=== PATIENT | female | born 1955 | race Caucasian/White ===

== ENCOUNTER 2017-02-01 03:28 | Inpatient (IN) | payer OTHER ==
[~2017-02-01] VITALS: Ht 165.1 cm; Wt 76.2 kg
[~2017-02-01 03:28] MED LIST: CYMBALTA60 M1 PO; ESTRACE1 MG PO; HYDROCHLOROTHIA25 M1 PO; PROAIR HFA8.5 GM INH; PROTONIX40 M3 PO; RESTASIS1 EACH OPH; XANAX0.5 M1 PO
--- NOTE | 2017-02-01 13:25 | Admission Core Measures ---
Admission Meds I reviewed the following Meds: Current Medications Sig/Scott Start time Last Medication Dose Stop Time Status Admin Albuterol Sulfate 2 PUF Q4-6 PRN PRN 02/01 1315 UNVr (Ventolin) Alprazolam 0.5 MG DAILY PRN 02/01 1315 UNVr (Xanax) 02/08 1314 Clindamycin 600 MG ONCE 02/01 0000 NR (Cleocin) 02/01 2359 Dextrose/Water 50 ML (D5W) Duloxetine HCl 60 MG DAILY 02/02 1000 UNVr (Cymbalta) Estradiol 1 MG .[EVERY OTHER ] 02/01 1315 UNVr (Estrace) Hydrochlorothiazide 25 MG DAILY 02/02 1000 UNVr (Hydrodiuril) Non-Formulary 0 SEE ADMIN CRITERIA 02/01 1315 UNVr Medication (NON FORMULARY) Pantoprazole Sodium 40 MG DAILY 02/02 1000 UNVr (Protonix) Acute Coronary Syndrome Inclusion Criteria ACS Diagnosis No Inpatient Core Measures LDL Reminder: If No, please order W/I first 24hr of stay Congestive Heart Failure Inclusion Criteria CHF Diagnosis No Cerebrovascular accident Inclusion Criteria CVA/TIA Diagnosis No Inpatient Core Measures Bedside Swallow Eval Reminder: If BSE failed, place ST order Antithrombotic Reminder: Order Antithrombotic Medication by end of day 2 Antithrombotic Reminder: Document Reason Antithrombotic Not ordered by end of day 2 AFIB/Flutter Reminder: If Present, add to problem list AFIB/Flutter Reminder: Order Anticoag Medication for pts with AFIB/Flutter Atherosclerosis Reminder: If Present, add to problem list LDL Reminder: If No, please order W/I first 24hr of stay PT Order Reminder: If No, please order Venous thromboembolism Inpatient Core Measures VTE Risk Factors: Age > 40, Surgery No [facility] VTE prophylaxis d/t No contraindications No VTE Pharm Prophylaxis d/t Surgical contraindication Inclusion Criteria - Per Current guidelines, there needs to be overlap - treatment for the first 5 days of Warfarin therapy. - Parenteral Anticoagulation (IV or SC) needs to be - given along with Warfarin therapy. VTE Diagnosis No VTE Type NONE VTE Confirmed by (Test) NONE Problem List As ranked by this Provider includes Assessment & Plan 1. Osteochondral defect of femoral condyle HOME MEDS Home Med List Albuterol Sulfate (Proair Hfa) 90 MCG HFA.AER.AD 2 PUF INH Q4-6 PRN PRN ASTHMA (Reported) Alprazolam (Xanax) 0.5 MG TABLET 1 TAB PO DAILY NEEDED PRN ANXIETY ( Reported) Cyclosporine (Restasis) 0.05 % DROPERETTE 1 GTT OPH BID DRY EYE (Reported) Duloxetine HCl (Cymbalta) 60 MG CAPSULE.DR 1 CAP PO DAILY PAIN (Reported) Estradiol (Estrace) 1 MG TABLET 1 TAB PO EVERY OTHER POST MENOPAUSAL ( Reported) Hydrochlorothiazide 25 MG TABLET 1 TAB PO DAILY HTN (Reported) Pantoprazole Sodium (Protonix) 40 MG TABLET.DR 1 TAB PO DAILY GERD (Reported)
[2017-02-01] MEDS ORDERED: PERCOCET 5-3251 EACH PO (13:26)
--- NOTE | 2017-02-01 13:30 | Patient Discharge Instructions ---
Discharge Instructions General Discharge Information You were seen/treated for: RIGHT KNEE PAIN RELATED TO OSTEOCHONDRAL DEFECT You had these procedures: RIGHT KNEE MEDIAL FEMORAL CONDYLE SUBCHONDROPLASTY Watch for these problems: Increasing pain despite the use of pain medications. Increasing redness, warmth, or swelling. Drainage from incisions. Inability to bear weight on right leg. Persistent nausea and vomitting. Fever greater than 101.5 degrees. Do not soak the wound: Yes No bath, but you may shower: Yes Other wound care: Keep wound clean and dry. No ointments or lotions on or near incision. Daily dry dressing changes after the third postoperative day unless otherwise indicated by DR. OLEA. Special Instructions: Weight bear as tolerated, use rolling walker for support. Diet Continue normal diet: Yes Recommended Diet: Regular Activity Full Activity/No Limits: No Activity Self Limited: Yes Pounds, do NOT lift more than: 10 Activity Limited to: Weight bear as tolerated Acute Coronary Syndrome Inclusion Criteria At DC or during hospital stay patient has or had the following: ACS DIAGNOSIS No Discharge Core Measures Meds if any: Prescribed or Continued at Discharge Meds if any: NOT Prescribed or Continued at Discharge Congestive Heart Failure Inclusion Criteria At DC or during hospital stay patient has or had the following: CHF DIAGNOSIS No Discharge Core Measures Meds if any: Prescribed or Continued at Discharge Meds if any: NOT Prescribed or Continued at Discharge Cerebrovascular accident Inclusion Criteria At DC or during hospital stay patient has or had the following: CVA/TIA Diagnosis No Discharge Core Measures Meds if any: Prescribed or Continued at Discharge Meds if any: NOT Prescribed or Continued at Discharge Venous thromboembolism Inclusion Criteria VTE Diagnosis No VTE Type NONE VTE Confirmed by (Test) NONE Discharge Core Measures - Per Current guidelines, there needs to be overlap - treatment for the first 5 days of Warfarin therapy. - If discharged on Warfarin prior to 5 days of - overlap therapy, the patient will need to be - assessed for post discharge needs including - *Post discharge parental anticoagulation - *Warfarin and/or parental anticoagulation education - *Follow up date to check INR post discharge At least 5 days overlap therapy as Inpatient No Meds if any: Prescribed or Continued at Discharge Note: Overlap Therapy is Warfarin and Anticoagulant Meds if any: NOT Prescribed or Continued at Discharge
--- NOTE | 2017-02-01 13:37 | Surgical Discharge Summary ---
Visit Information Visit Dates Admission Date: 02/01/17 Discharge Date: 02/02/17 History of Present Illness Chief Complaint: Right knee pain related to osteochondral defect of right medial femoral condyle Medical History Isolation History: Standard Tetanus Vaccine: 04/30/13 Surgical History Pertinent Surgical History: non-contributory Psychosocial History What is Your Primary Language? Kyrgyz Review of Systems: See H&P Hospital Course Course Attending Physician: SAMREEN OLEA MD Primary Care Physician: PAULY BAKER MD Hospital Course: On 02/01/2017, Neetu underwent a right knee arthroscopy with a subchondroplasty of the medial femoral condyle. She tolerated the procedure well but required intravenous pain medications in the post operative period thereby necessitaing an admission to the hospital. From the post anesthesia care unit, she was transferred to a general surgical floor. There, her vital signs were stable and within normal limits, and she remained neurovascularly intact. Her diet was advanced and tolerated, and she voided spontaneously. Over the course of her stay, her pain was eventually able to be managed with the exclusive use of oral pain medication and she was evaluated and treated by physical therapy. She was deemed appropriate for discharge. Allergies: Coded Allergies: Penicillins (HIVES 01/31/17) Sulfa (Sulfonamide Antibiotics) (? 01/31/17) cefuroxime (From CEFTIN) (HIVES 01/31/17) Disposition Summary Disposition Principal Diagnosis: Right knee osteochondral defect medial femoral condyle Additional Diagnosis: none Discharge Disposition: home or self care Discharge Instructions General Discharge Information Code Status: Full Code Patient's Diet: Regular, Advance as tolerated Patient's Activity: Weight bear as tolerated, use rolling walker for support Follow-Up Instructions/Appts: Follow up in one week from surgery with Dr Olea Medications at Discharge Discharge Medications: Continue taking these medications: Hydrochlorothiazide (Hydrochlorothiazide) 25 MG TABLET 1 Tablet ORAL DAILY Comments: Last Taken: 02/02/17 Time: 8AM Duloxetine HCl (Cymbalta) 60 MG CAPSULE. 1 Capsule ORAL DAILY Comments: Last Taken: 02/01/17 Time: 8:30PM Estradiol (Estrace) 1 MG TABLET 1 Tablet ORAL EVERY OTHER Alprazolam (Xanax) 0.5 MG TABLET 1 Tablet ORAL DAILY NEEDED as needed for ANXIETY Comments: NOT GIVEN WHILE IN HOSPITAL Albuterol Sulfate (Proair Hfa) 90 MCG HFA.AER.AD 2 Puff Inhale through mouth EVERY 4-6 HOURS NEEDED as needed for ASTHMA Comments: NOT GIVEN WHILE IN HOSPITAL Cyclosporine (Restasis) 0.05 % DROPERETTE 1 Drop In the eye TWICE DAILY Instructions: LEFT EYE ONLY Comments: Last Taken: 02/02/17 Time: 8AM Pantoprazole Sodium (Protonix) 40 MG TABLET.DR 1 Tablet ORAL DAILY Comments: Last Taken: 02/02/17 Time: 8AM IV DOSE GIVEN WHILE IN HOSPITAL Start taking the following new medications: Oxycodone HCl/Acetaminophen (Percocet 5-325 MG Tablet) 5 MG-325 MG TABLET 1-2 Tablet ORAL Q4-6H as needed for PAIN Qty = 36 No Refills Comments: Last Taken: 02/02/17 Time: 8:30AM
--- NOTE | 2017-02-01 14:30 | NUR ---
PT ARRIVED FROM PACU S/P RT LEG ARTHROSCOPY, PT AXO, C/O PAIN 12/19, REFUSE NEED FOR PAIN MEDS, RT KNEE DSG CDI, PT ORIENTED TO ROOM, CALL LIGHT AND PLAN OF CARE, PT VERBALIZES UNDERSTANDING
--- NOTE | 2017-02-01 14:55 | RADIOLOGY REPORT ---
EXAMINATION: XR KNEE, RIGHT C-ARM FLUOROSCOPY ASSISTANCE CLINICAL INFORMATION: 61-year-old female for right knee arthroscopy. COMPARISON: None TECHNIQUE: 10 spot radiographs were obtained at the time of the procedure. Fluoroscopy time: 1 minute 48 seconds. FINDINGS: Radiopaque device was seen projecting over the medial aspect of the right knee at the time of the procedure. Full procedural detail will be dictated by Dr. Moreno. IMPRESSION: C-arm fluoroscopy assistance is provided at the time of right knee arthroscopy. Full procedural detail will be dictated by Dr. Moreno.
[2017-02-01 15:00] VITALS: BP 115/70
--- NOTE | 2017-02-01 15:32 | PN- Orthopedic ---
Subjective Subjective: POST-OP NOTE: No complaints. IV pain requirements in pacu necessitated admission overnight. She is tolerating clears. No nausea. She voided in pacu via bedpan. She hasn't been seen by PT yet, and has yet to get out of bed. No dizziness. No shortness of breath. No chest pains. Objective Vital Signs and I&Os Intake & Output 02/01 1600 02/01 0802/01 0000 01/31 1600 01/31 0801/31 0000 Intake Total Output Total Balance Patient 168 lb Weight pacu flowsheet reviewed, voided in pacu Physical Exam: General - alert & oriented x 3. comfortable. no acute distress. Lungs - clear bilaterally. no w/r/r. Cardiac - s1s2. reg. Abdomen - soft. nontender. Extremities - warm bilaterally. no c/c/e. right knee dressing c/d/i, with ice pack in place. sensation grossly intact and equal. strong df/pf b/l. calves soft and nontender b/l. Current Medications: Current Medications Sig/Scott Start time Last Medication Dose Route Stop Time Status Admin Albuterol Sulfate 2 PUF Q4-6 PRN PRN 02/01 1500 AC INH Albuterol Sulfate 2 PUF Q4-6 PRN PRN 02/01 1315 DC INH Alprazolam 0.5 MG DAILY PRN 02/01 1500 UNVr PO 02/08 1314 Alprazolam 0.5 MG DAILY PRN 02/01 1315 DC PO 02/08 1314 Clindamycin 600 MG ONCE 02/01 0000 DC Dextrose/Water 50 ML IV 02/01 2359 Cyclosporine 1 GTT BID 02/01 2200 DC OPH Cyclosporine 1 GTT BID 02/01 220 UNVr OPH Dextrose/Sodium 1,000 ML .[id number] 02/01 1500 AC Chloride IV Docusate Sodium 100 MG BID 02/01 2200 UNVr PO Duloxetine HCl 60 MG DAILY 02/02 1000 DC PO Duloxetine HCl 60 MG DAILY 02/02 1000 UNVr PO Estradiol 1 MG Q48 02/02 1000 DC PO Estradiol 1 MG Q48 02/02 1000 UNVr PO Hydrochlorothiazide 25 MG DAILY 02/02 1000 DC PO Hydrochlorothiazide 25 MG DAILY 02/02 1000 UNVr PO Morphine Sulfate 2 MG Q2P PRN 02/01 1500 UNVr IV Ondansetron HCl 4 MG Q6P PRN 02/01 1500 UNVr IV Oxycodone/ 1 TAB Q4P PRN 02/01 1500 UNVr Acetaminophen PO Oxycodone/ 2 TAB Q4P PRN 02/01 1500 UNVr Acetaminophen PO Pantoprazole Sodium 40 MG DAILY 02/02 1000 DC IV Pantoprazole Sodium 40 MG DAILY 02/02 1000 UNVr IV Promethazine HCl 12.5 MG Q6P PRN 02/01 1500 UNVr IV 02/08 1314 Assessment/Plan Assessment/Plan This 61 year old white female is POD#0 s/p right knee arthroscopy with a subchondroplasty of the medial femoral condyle, for right knee pain related to osteochondral defect of right medial femoral condyle advance diet as tolerated pain control as needed. transition to percocet as able for home dispo. add colace bid PT eval - wbat rolling walker as needed home meds re-ordered d/c planning for home tomorrow if cleared by PT will d/w Core Measures/Miscellaneous Venous Thromboembolism VTE Risk Factors: Age > 40, Surgery VTE Contraindications: No Contraindications VTE Diagnosis: No VTE Type: NONE VTE Confirmed by (Test): NONE Beta Neil Is Beta Neil a Home Med? No Antibiotics Is Patient on Antibiotics? No
[2017-02-01 17:38] VITALS: BP 102/60
[2017-02-01 19:30] VITALS: BP 120/60
[2017-02-01 21:30] VITALS: BP 114/70
[2017-02-02 02:00] VITALS: BP 118/68
[2017-02-02 05:30] VITALS: BP 114/70
--- NOTE | 2017-02-02 07:30 | PN- Orthopedic ---
See Addendum Subjective Subjective: No acute overnight events reported. Adequate pain control was achieved with the use of oral pain medication. Patient has yet to ambulate, is awaiting physical therapy this am. Is anticipating discharge to home today. No complaints of chest pain, shortness of breath or difficulty breathing. No nausea or vomitting. No difficulty with voiding. Objective Vital Signs and I&Os Vital Signs Date Time Temp Pulse Resp B/P B/P Pulse O2 O2 Flow FiO2 Mean Ox Delivery Rate 02/02 0530 97.8 80 20 114/70 100 Nasal 3.0L Cannula 02/02 0200 98.0 90 20 118/68 100 Nasal 3.0L Cannula 02/01 2130 98.1 89 20 114/70 100 Nasal Cannula 02/01 1930 97.8 80 20 120/60 96 Nasal Cannula 02/01 1738 97.9 89 20 102/60 98 Nasal Cannula 02/01 1600 Nasal 2.0L Cannula 02/01 1500 96.0 89 20 115/70 98 Nasal 2.0L Cannula 02/01 1430 Nasal 2.0L Cannula Intake & Output 02/02 0800 02/02 0000 02/01 1600 02/01 0800 02/01 0000 01/31 1600 Intake Total 600 Output Total 1100 Balance -500 Intake, IV 600 Output, Urine 1100 Patient 168 lb 168 lb Weight Weight Reported by Patient Measurement Method Physical Exam: General: Alert and oriented x3, no acute distress Cardiac: RRR, s1s2 Pulm: C T A bilaterally Abd: non-tender, non-distended Extremities: Moves all extremities, distal sensation intact. Motor 5/5 in plantar and dorsi flexion. Skin warm and well perfused. DP pulses palpable bilaterally. Bilateral calves soft and non-tender Surgical site: Right knee, Dressing dry and intact. Assessment/Plan Assessment/Plan This is a 61 year old female, POD 1, s/p right knee arthroscopy with subchondroplasty. PMH includes htn, gerd, hld, dep and anxiety. Was admitted overnight for pain control, doing well. -Continue oral percocet for pain managment -OOB with pt today, wbat, stairs -Continue diet as tolerated -Mechanical dvt ppx with alps, early ambulation -Plan for discharge to home today -Will d/w Dr. Moreno Core Measures/Miscellaneous Venous Thromboembolism VTE Risk Factors: Age > 40, Surgery VTE Contraindications: No Contraindications VTE Diagnosis: No VTE Type: NONE VTE Confirmed by (Test): NONE Beta Neil Is Beta Neil a Home Med? No Antibiotics Is Patient on Antibiotics? No
--- NOTE | 2017-02-08 12:51 | Operative Report ---
Operative/Inv Procedure Report Surgery Date: 02/01/17 Name of Procedure: #1 right knee arthroscopically aided open reduction internal fixation of the medial femoral condyle stress fracture and insufficiency fracture #2 right knee diagnostic arthroscopy Pre-Operative Diagnosis: Insufficiency fracture right knee medial femoral condyle Post-Operative Diagnosis: Same Estimated Blood Loss: less than 50ml Surgeon/Machine Sole Leveler: SAMREEN OLEA MD Anesthesia: laryngeal mask airway IV Fluids: See anesthesia record Drains: None Specimens: None Complications: None Condition: Stable Operative Indication: Patient is a 61-year-old female who had an MRI post arthroscopy for meniscectomy on the medial meniscus which revealed a insufficiency and stress fracture of the medial femoral condyle. She was indicated for treatment open treatment with subchondral plasty procedure with \ACCUfill calcium phosphate. Risks and benefits were discussed and the patient was to proceed. Operative/Procedure Note Note: Once informed consent was obtained the correct limb was identified patient brought to operating room placed on table supine position. After administration of general endotracheal anesthesia the patient's right leg was prepped and draped in usual sterile fashion and placed in a knee christina. To begin the procedure we are going to begin with the subchondral plasty portion of the procedure. The MRI was visualized and C-arm fluoroscopy was brought in and of the insufficiency fracture medial femoral condyle was located in the AP and lateral planes using C-arm fluoroscopy. A small medial incision was made and neck inspected spread technique was used to place the cannula from the [place] activity. Chondroplasty system on the medial femoral condyle. Once the position of the trocar was in good position in both the AP and lateral planes it was drilled into the medial femoral condyle under C-arm fluoroscopy. Once we were in the appropriate position the calcium phosphate mixture was mixed on the back table. And then under live fluoroscopy the calcium phosphate active fill was injected into the medial femoral condyle using live fluoroscopy. Once we completed the injection portion of procedure the cannula was placed back in and the calcium phosphate was allowed to set for 8 minutes. The trocar was then removed without complication and the wound was closed with 3-0 nylon interrupted sutures. Next the arthroscopy portion of the procedure was performed. Using standard lateral portal the scope was introduced into the knee and diagnostic arthroscopy was carried out. Patellofemoral joint showed grade 2 changes of the patella at the inferior pole. The trochlea also had grade 2 chondral malacia changes. No plica or bands. There are no loose bodies in the medial lateral gutters. The lateral compartment knee was entered by placing the knee in a figure 4 position and there is no evidence of any new or acute meniscal tears laterally. The ACL was intact. By placing a valgus stress on the knee the scope was introduced into the medial compartment the knee there was no extravasation of the calcium phosphate Accu Ty in the knee joint. The medial meniscus which had been treated previous Tyrese with arthroscopy was intact with no new tears. There are no significant changes in the cartilaginous surfaces of the medial femoral condyle and medial tibial plateau they still showed grade 2-3 chondral changes. Once this was done the knee was pulse lavaged and the arthroscope was inserted removed room in stable condition.
== END 2017-02-02 13:30 | DRG 482 ==
LOC: SDA 03:28 → CANRESERV 13:08 → ENRESERV 13:08 → 2NA 14:27 → ENPENDDIS 02-02 07:42 → 2NA 02-02 13:30
PROVIDERS: ADMIT Orthopaedic Surgery Foot and Ankle Surgery
PROC: 0QS Lower Bones, Reposition (ICD-10-PCS; principal; 2017-02-01)
PROC: 0QUB0JZ Supplement Right Lower Femur with Synthetic Substitute, Open Approach (ICD-10-PCS; 2017-02-01)
PROC: 0SJC4ZZ Inspection of Right Knee Joint, Percutaneous Endoscopic Approach (ICD-10-PCS; 2017-02-01)
DX: M84.451A Pathological fracture, right femur, initial encounter for fracture (principal); I10 Essential (primary) hypertension; M84.351A Stress fracture, right femur, initial encounter for fracture; J44.9 Chronic obstructive pulmonary disease, unspecified; J45.909 Unspecified asthma, uncomplicated; K21.9 Gastro-esophageal reflux disease without esophagitis; F41.8 Other specified anxiety disorders; X58.XXXA Exposure to other specified factors, initial encounter; Z85.22 Personal history of malignant neoplasm of nasal cavities, middle ear, and accessory sinuses
CPT/HCPCS: 2NAP; 73560-RT; 97116-GO; 97161-GP; 97530-GO; J0131; J2405; J2550; J3490; J7042